=== PATIENT | female | born 1995 | race Caucasian/White ===

== ENCOUNTER 2020-04-23 12:46 | Emergency (ER) | payer MEDICAID ==
[~2020-04-23] VITALS: Ht 162.6 cm; Wt 56.0 kg
[2020-04-23 13:00] VITALS: BP 111/68
[2020-04-23] MEDS ORDERED: KETOROLAC 60MG/2ML VIAL IM ONE (14:00)
== END 2020-04-23 15:34 | disposition home or self-care (01) ==
LOC: ER 12:46
DX: R51.9 Headache, unspecified (principal)
CPT/HCPCS: 81025; 96372; 99283; J1885

== ENCOUNTER 2020-05-02 04:54 | Emergency (ER) | payer MEDICAID ==
[~2020-05-02] VITALS: Ht 162.6 cm; Wt 54.0 kg
[2020-05-02 06:34] VITALS: BP 122/70
== END 2020-05-02 06:36 | disposition home or self-care (01) ==
LOC: ER 04:54
DX: R51.9 Headache, unspecified (principal)
CPT/HCPCS: 81025; 99284

== ENCOUNTER 2021-03-17 23:11 | Emergency (ER) | payer MEDICAID ==
[~2021-03-17] VITALS: Ht 162.6 cm; Wt 56.0 kg
[2021-03-17 23:27] VITALS: BP 121/85
[2021-03-18] MEDS ORDERED: BENZ-16 MT (01:38)
[2021-03-18] MEDS ORDERED: GUAI237L83 MT (01:38)
== END 2021-03-18 02:51 | disposition home or self-care (01) ==
LOC: ER 23:40
DX: R05 Cough (principal); R03.0 Elevated blood-pressure reading, without diagnosis of hypertension
CPT/HCPCS: 81025; 99283